=== PATIENT | male | born 1970 | race Caucasian/White ===

== ENCOUNTER 2019-03-07 15:22 | Emergency (ER) | payer OTHER ==
--- NOTE | 2019-03-07 16:50 | UC ---
Upper Extremity HPI - HPI Summary HPI Summary: patient was treated in the ER 5 days ago for diverticulitis, had an IV that infiltrated and now has a painful phlebitis in the right lower arm. he is currently on flagyl and cipro for diverticulitis. - History of Current Complaint Stated Complaint: RIGHT ARM SKIN CONCERN Time Seen by Provider: 03/07/19 16:31 Hx Obtained From: Patient ?: No Onset/Duration: Sudden Onset, Lasting Days Severity Initially: Moderate Severity Currently: Moderate Location Of Pain: Is Discrete @ Character: Dull, Aching, Stiffness Aggravating Factor(s): Movement Associated Signs And Symptoms: Positive: Swelling Related History: Dominant Hand Right - Allergies/Home Medications Allergies/Adverse Reactions: Allergies Allergy/AdvReac Type Severity Reaction Status Date / Time omeprazole Allergy Hives Verified 03/07/19 16:38 spironolactone Allergy [place] Verified 03/07/19 16:38 ing Home Medications: Home Medications Acetaminophen [Acetaminophen Extra Strength] 1,000 mg PO ONCE PRN 03/07/19 [ History Confirmed 03/07/19] Ciprofloxacin TAB* [Cipro 500 MG TAB*] 500 mg PO BID 03/07/19 [History Confirmed 03/07/19] metroNIDAZOLE [Flagyl 500 MG TAB] 500 mg PO BID 03/07/19 [History Confirmed 06/18] PMH/Surg Hx/FS Hx/Imm Hx Previously Healthy: Yes - Surgical History Surgical History: None - Family History Known Family History: Positive: Cardiac Disease, Hypertension - Social History Alcohol Use: Daily Alcohol Amount: USUALLY 1 DRINK DAILY Substance Use Type: None Smoking Status (MU): Former Smoker Type: Smokeless Tobacco Review of Systems All Other Systems Reviewed And Are Negative: Yes Constitutional: Positive: Negative Skin: Positive: Other - swelling and visible juan david Eyes: Positive: Negative ENT: Positive: Negative Respiratory: Positive: Negative Cardiovascular: Positive: Negative Gastrointestinal: Positive: Negative Genitourinary: Positive: Negative Motor: Positive: Negative Neurovascular: Positive: Negative Musculoskeletal: Positive: Myalgia Neurological: Positive: Negative Psychological: Positive: Negative Is Patient Immunocompromised?: No Physical Exam Triage Information Reviewed: Yes Appearance: Well-Appearing, Well-Nourished, Pain Distress Vital Signs Reviewed: Yes Eye Exam: Normal ENT Exam: Normal Dental Exam: Normal Neck exam: Normal Neck: Positive: Supple, Nontender, No Lymphadenopathy Respiratory Exam: Normal Respiratory: Positive: Chest non-tender, Lungs clear, Normal breath sounds Cardiovascular Exam: Normal Cardiovascular: Positive: RRR, No Murmur, Pulses Normal Abdominal Exam: Normal Abdomen Description: Positive: Nontender, No Organomegaly, Soft Bowel Sounds: Positive: Present Musculoskeletal: Positive: Strength Intact, ROM Intact, Edema @ - of the right lower extremity Neurological Exam: Normal Neurological: Positive: Alert, Muscle Tone Normal Psychological Exam: Normal Skin: Positive: Other - visible and palpable juan david in the right lower arm Upper Extremity Course/Dx - Course Course Of Treatment: hx obtained, exam performed ,meds reviewed, educated on phlebitis. patient is currently taking cipro and flagyl for diverticulitis. - Differential Dx/Diagnosis Differential Diagnosis/HQI/PQRI: Contusion, Septic Arthritis, Other - phlebitis Provider Diagnosis: Phlebitis after infusion Discharge - Sign-Out/Discharge Documenting (check all that apply): Patient Departure All imaging exams completed and their final reports reviewed: No Studies - Discharge Plan Condition: Stable Disposition: HOME Prescriptions: Aspirin TAB* [Aspirin 325 MG TAB*] 325 mg PO DAILY #30 tab Patient Education Materials: Phlebitis (ED) Referrals: Sander Boothe [Primary Care Provider] - Additional Instructions: 1. continue to hot pack the arm multiple times a day 2. take the daily aspirin till resolved. 3. Ibuprofen and tylneol for pain. 4. follow up if you develope any increased swelling, redness or not resolving over the next week. - Billing Disposition and Condition Condition: STABLE Disposition: Home
[2019-03-07 16:52] VITALS: BP 141/83
== END 2019-03-07 17:00 | disposition home or self-care (01) ==
LOC: UCCORT 15:22
DX: T80.1XXA Vascular complications following infusion, transfusion and therapeutic injection, initial encounter (principal); Z87.891 Personal history of nicotine dependence; Z88.8 Allergy status to other drugs, medicaments and biological substances
CPT/HCPCS: 99212; G0463